=== PATIENT | female | born 1940 | race African-American/Black ===

== ENCOUNTER 2018-02-18 09:39 | Emergency (ER) | payer OTHER ==
[~2018-02-18] VITALS: Ht 160 cm; Wt 83.0 kg
[~2018-02-18 09:39] MED LIST: ADULT LOW DOSE81 M1 PO; AMLODIPINE BESY10 MG PO; AMLODIPINE BESYL5 MG PO; ASPIR 8181 M1 PO; ATENOLOL; ATENOLOL50 MG PO; ATORVASTATIN CA80 MG PO; BENICAR HCT 401 EAC1 PO; BYSTOLIC10 MG PO; CLONIDINE HCL0.1 MG PO; CLONIDINE HCL0.2 MG PO; DOCUSATE SODIU100 MG PO; ENDOCET 5-3251 EACH PO; FENTANYL1 EAC1 TD; HYDROCHLOROTHIA25 MG PO; HYDROCODON-ACE1 EAC7 PO; LISINOPRIL5 MG PO; LO-DOSE ASPIRIN81 M1 PO; LOSARTAN POTAS100 MG PO; LOVENOX40 MG/0.4 SC; NAPROXEN500 MG PO; NIFEDIPINE ER90 MG PO; NORVASC5 MG PO; PERCOCET 10/1 TABLET PO; PREDNISONE10 MG PO; PROAIR HFA8.5 GM IH; SIMVASTATIN10 MG PO; TYLENOL WITH C1 EACH PO; ZOCOR10 MG PO
[2018-02-18 10:58] LABS: APPEARANCE CLEAR ((CLEAR)); BILIRUBIN NEGATIVE; BLOOD NEGATIVE; COLOR YELLOW ((YELLOW)); GLUCOSE (STRIP) NEGATIVE; KETONES NEGATIVE; LEUKOCYTES MODERATE; NITRITE NEGATIVE; PROTEIN (STRIP) NEGATIVE; SPECIFIC GRAVITY 1.012 (1.000-1.030); UROBILINOGEN 0.2 MG/DL (0.2-1.0)
[2018-02-18 11:04] LABS: HEMATOCRIT 40.9 % (36.0-46.0); HEMOGLOBIN 13.5 G/DL (11.9-15.5); MCH 29.5 PG (29.0-34.0); MCV 89.3 FL (83-99); PLATELET COUNT 254 K/uL (156-360); RBC DIS.WIDTH-CV 13.1 % (11.8-14.6); RBC DIS.WIDTH-SD 42.5 % (39-53); RED BLOOD COUNT 4.58 M/uL (3.80-5.20); WHITE BLOOD COUNT 6.1 K/uL (4.1-10.2)
[2018-02-18 11:09] LABS: BACTERIA NONE SEEN /HPF; EPITHELIAL CELLS 1+ /HPF; MUCUS NONE SEEN /LPF; RED BLOOD CELLS 0-5 /HPF (0-5); UCUL ADDED? NO; WHITE BLOOD CELLS 0-5 /HPF (0-5)
[2018-02-18 11:16] LABS: ALBUMIN 4.3 g/dL (3.2-4.8); CHLORIDE 102 mEq/L (99-109); POTASSIUM 3.8 mEq/L (3.7-5.4); SODIUM 143 mEq/L (136-147)
[2018-02-18 11:17] LABS: MAGNESIUM 2.5 mg/dL (1.3-2.7)
[2018-02-18 11:18] LABS: GLUCOSE 87 mg/dL (70-99)
[2018-02-18 11:19] LABS: TOTAL PROTEIN 7.9 g/dL (6.4-8.3)
[2018-02-18 11:20] LABS: TOTAL BILIRUBIN 0.6 mg/dL (0.0-1.0)
[2018-02-18 11:22] LABS: ALKALINE PHOSPHATASE 104 IU/L (3-129); CREATININE 0.9 mg/dL (0.6-1.3); GFR ESTIMATE (CALCULATED) > 59 mL/min/
[2018-02-18 11:23] LABS: UREA NITROGEN (BUN) 14 mg/dL (9-23)
[2018-02-18 11:24] LABS: AST (GOT) 22 IU/L (2-34)
[2018-02-18 11:25] LABS: ALT (GPT) 11 IU/L (3-49); CREATINE KINASE 44 IU/L (1-294); TOTAL CK 44 IU/L (1-294); TROP-I INTERPRETATION NEGATIVE; TROPONIN-I < 0.01 ng/mL (0.0-0.30)
[2018-02-18 11:33] LABS: CK-MB 0.9 ng/mL (0.0-4.9)
[2018-02-18] MEDS ORDERED: PRAVASTATIN SOD80 MG PO (11:38)
[2018-02-18] MEDS ORDERED: ATENOLOL25 MG PO (11:40)
[2018-02-18] MEDS ORDERED: OLMESARTAN-HCT1 EAC2 PO (11:42)
[2018-02-18 12:50] VITALS: BP 185/72
== END 2018-02-18 13:10 | disposition home or self-care (01) ==
LOC: EME 09:39
PROVIDERS: Emergency Medicine
DX: M54.9 Dorsalgia, unspecified (principal); M62.830 Muscle spasm of back; E78.5 Hyperlipidemia, unspecified; I10 Essential (primary) hypertension; Z86.73 Personal history of transient ischemic attack (TIA), and cerebral infarction without residual deficits; Z96.652 Presence of left artificial knee joint
CPT/HCPCS: 71046; 80053; 81003; 82550; 82553; 83735; 84484; 85027; 93005; 99281; 99285; J1885; J7040

== ENCOUNTER 2018-04-24 15:41 | Inpatient (IN) | payer OTHER ==
[~2018-04-24] VITALS: Ht 160 cm; Wt 84.4 kg
[~2018-04-24 15:41] MED LIST changes: +ATENOLOL25 MG PO; +OLMESARTAN-HCT1 EAC2 PO; +PRAVASTATIN SOD80 MG PO
[2018-04-24 16:07] LABS: HEMATOCRIT 40.9 % (36.0-46.0); HEMOGLOBIN 13.6 G/DL (11.9-15.5); MCH 29.9 PG (29.0-34.0); MCHC 33.3 G/DL (30.0-36.0); MCV 89.9 FL (83-99); PLATELET COUNT 262 K/uL (156-360); RBC DIS.WIDTH-CV 13.3 % (11.8-14.6); RBC DIS.WIDTH-SD 44.1 % (39-53); RED BLOOD COUNT 4.55 M/uL (3.80-5.20); WHITE BLOOD COUNT 7.5 K/uL (4.1-10.2)
[2018-04-24 16:16] LABS: CHLORIDE 102 mEq/L (99-109); POTASSIUM 4.5 mEq/L (3.7-5.4); SODIUM 143 mEq/L (136-147)
[2018-04-24 16:18] LABS: GLUCOSE 98 mg/dL (70-99)
[2018-04-24 16:22] LABS: CREATININE 1.1 mg/dL (0.6-1.3); GFR ESTIMATE (CALCULATED) > 59 mL/min/
[2018-04-24 16:23] LABS: UREA NITROGEN (BUN) 22 mg/dL (9-23)
[2018-04-24 16:28] LABS: TROP-I INTERPRETATION NEGATIVE; TROPONIN-I < 0.01 ng/mL (0.0-0.30)
[2018-04-24 17:16] LABS: PTT 30.8 SEC (25-37)
[2018-04-24] MEDS ORDERED: ONE DAILY FOR1 EAC3 PO (17:51)
[2018-04-24] MEDS ORDERED: AMLODIPINE BESYL5 MG PO (17:53)
[2018-04-24] MEDS ORDERED: BENICAR HCT 401 EAC1 PO (17:54)
[2018-04-24 18:50] LABS: ALBUMIN 4.2 g/dL (3.2-4.8)
[2018-04-24 18:53] LABS: TOTAL PROTEIN 7.8 g/dL (6.4-8.3)
[2018-04-24 18:55] LABS: TOTAL BILIRUBIN 0.5 mg/dL (0.0-1.0)
[2018-04-24 18:56] LABS: ALKALINE PHOSPHATASE 111 IU/L (3-129)
[2018-04-24 18:58] LABS: AST (GOT) 22 IU/L (2-34); DIRECT BILIRUBIN 0.2 mg/dL (0.0-0.3)
[2018-04-24 18:59] LABS: ALT (GPT) 11 IU/L (3-49)
[2018-04-24 19:02] LABS: TROP-I INTERPRETATION NEGATIVE; TROPONIN-I < 0.01 ng/mL (0.0-0.30)
[2018-04-24 21:55] VITALS: BP 146/78
[2018-04-25] VITALS (8 sets, daily range): BP systolic 128–193; BP diastolic 56–92
[2018-04-25 01:07] LABS: TROP-I INTERPRETATION NEGATIVE; TROPONIN-I < 0.01 ng/mL (0.0-0.30)
[2018-04-25 06:33] LABS: HEMATOCRIT 36.7 % (36.0-46.0); MCH 28.7 PG (29.0-34.0); MCHC 32.7 G/DL (30.0-36.0); MCV 87.8 FL (83-99); PLATELET COUNT 250 K/uL (156-360); RBC DIS.WIDTH-CV 13.2 % (11.8-14.6); RBC DIS.WIDTH-SD 43.1 % (39-53); RED BLOOD COUNT 4.18 M/uL (3.80-5.20); WHITE BLOOD COUNT 6.6 K/uL (4.1-10.2)
[2018-04-25 06:56] LABS: CHLORIDE 101 MEQ/L (99-109); CREATININE 0.9 MG/DL (0.6-1.3); GFR ESTIMATE (CALCULATED) > 59 mL/min/; GLUCOSE 95 mg/dL (70-99); POTASSIUM 3.7 MEQ/L (3.7-5.4); SODIUM 140 MEQ/L (136-147); UREA NITROGEN (BUN) 20 mg/dL (9-23)
[2018-04-25 06:57] LABS: TROP-I INTERPRETATION NEGATIVE; TROPONIN-I 0.01 ng/mL (0.0-0.30)
[2018-04-26 04:00] VITALS: BP 148/73
[2018-04-26 07:37] VITALS: BP 138/63
[2018-04-26] MEDS ORDERED: CLONIDINE HCL0.1 MG PO (08:15)
== END 2018-04-26 10:02 | disposition home or self-care (01) | DRG 305 ==
LOC: EME 15:41 → 4SOUTH 18:18 → EDOF 18:18 → CANRESERV 18:21 → ENRESERV 18:21 → 4SOUTH 21:44
PROVIDERS: Emergency Medicine; Hospitalist
DX: I16.0 Hypertensive urgency (principal); E66.9 Obesity, unspecified; G89.4 Chronic pain syndrome; E78.5 Hyperlipidemia, unspecified; I11.9 Hypertensive heart disease without heart failure; J45.909 Unspecified asthma, uncomplicated; K59.09 Other constipation; M19.90 Unspecified osteoarthritis, unspecified site; Z96.652 Presence of left artificial knee joint; I44.0 Atrioventricular block, first degree; I45.19 Other right bundle-branch block; Z86.73 Personal history of transient ischemic attack (TIA), and cerebral infarction without residual deficits; Z68.33 Body mass index [BMI] 33.0-33.9, adult; Z79.82 Long term (current) use of aspirin; Z82.3 Family history of stroke; Z82.49 Family history of ischemic heart disease and other diseases of the circulatory system
CPT/HCPCS: 71046; 71275; 80048; 80076; 83690; 84484; 85027; 85610; 85730; 93005; 99281; 99285; J1650; S0028